=== PATIENT | female | born 1995 | race Caucasian/White ===

== ENCOUNTER 2018-02-06 20:00 | Emergency (ER) | payer OTHER ==
[~2018-02-06] VITALS: Ht 152.4 cm; Wt 60.8 kg
[~2018-02-06 20:00] MED LIST: ALEVE220 M1 PO; ANTIVERT25 MG PO; CITALOPRAM HYDR20 MG PO; ESCITALOPRAM OX10 MG PO; FIORICET 50-301 EACH PO; LINZESS72 MCG PO; MECLIZINE HCL25 MG PO; MOTRIN800 MG PO; PANTOPRAZOLE SO40 M1 PO; PANTOPRAZOLE SO40 MG PO; PROMETHAZINE12.5 M2 PO; SERTRALINE HCL50 MG PO; TRAZODONE HCL50 M1; VITAMIN D250000 UNIT PO
[2018-02-06 20:25] VITALS: BP 117/69
--- NOTE | 2018-02-06 20:33 | ED AMS/SEIZURE/WEAK/DIZZY ---
History of Present Illness General Chief Complaint: General Adult Stated Complaint: "PAIN AND HEAD PRESSURE , VERTIGO, NAUSEA" Source: patient, old records Exam Limitations: no limitations Vital Signs & Intake/Output Vital Signs & Intake/Output Vital Signs Date Time Temp Pulse Resp B/P B/P Pulse O2 O2 Flow FiO2 Mean Ox Delivery Rate 02/06 2025 99.2 65 18 117/69 98 Room Air Allergies Coded Allergies: Iodinated Contrast- Oral and IV Dye (IODINATED CONTRAST MEDIA - IV DYE) (HIVES 06/12/16) ampicillin (From UNASYN) (HIVES 06/12/16) aripiprazole (From ABILIFY) (TONGUE STIFFNESS AND UNCONTROLABLE MOVEMENTS ) lactase (LACTOSE INTOLERANT 09/08/17) sulbactam (From UNASYN) (HIVES 06/12/16) Reconcile Medications Diazepam (Valium) 2 MG TABLET 1 TAB PO BID dizziness Escitalopram Oxalate 10 MG TABLET 1.5 TAB PO DAILY MENTAL HEALTH (Reported) Linaclotide (Linzess) 72 MCG CAPSULE 1 CAP PO PRN GI (Reported) Linaclotide (Linzess) 72 MCG CAPSULE 1 TAB PO DAILY PRN ABDOMINAL DISCOMFORT Meclizine HCl 25 MG TABLET 1 TAB PO TID PRN VERTIGO (Reported) Naproxen Sodium (Aleve) 220 MG CAPSULE 1-2 CAP PO PRN PAIN (Reported) Pantoprazole Sodium 40 MG TABLET.DR 1 TAB PO DAILY GI (Reported) Promethazine HCl 12.5 MG TABLET 1 TAB PO Q6-8 PRN nausea Promethazine HCl 12.5 MG TABLET 1 TAB PO Q6-8 NAUSEA Triage Note: RECEIVED 22 YO FEMALE WITH HX OF VERTIGO AND MIGRAINES, C/O WORSENING DIZZINES X 3 MONTHS WITH HEAD PRESSURE AND LIGHTHEADEDNESS. PT CURRENTLY SEEING DR DIAZ (ENT) IN [place] FOR VERTIGO AND HAS PATCH BEHIND RIGHT EAR. Triage Nurses Notes Reviewed? yes Onset: Abrupt Duration: week(s):, intermittent, waxing and waning Timing: recent history Injury Environment: home Severity: mild, moderate Severity Numbers: 5 Modifying Factors: Improves With: rest. Worsens With: movement. Associated Symptoms: nausea : No Patient currently breastfeeds: No HPI: 22-year-old female presents with her mother history of vertigo migraines complaining of intermittent for to go episodes and intermittent sporadic diffuse migraine headaches going on for the past 3 months. She has been seen numerous times by her ear nose and throat physician in [place] and is scheduled to have an MRI performed of the inner ear next week. She had an MRI of the head performed here which was unremarkable. She's been taking meclizine without improvement. She currently presents with a scopolamine patch on. She denies any vomiting just reports nausea. No blurry vision tinnitus no recent sinus infections rhinorrhea congestion fever chills. No recent fall or head trauma no numbness no tingling or weakness no slurred speech (Jt Zapata) Past History Travel History Traveled to [place] past 21 day No Medical History Any Pertinent Medical History? see below for history Neurological: migraine, vertigo EENT: NONE Cardiovascular: NONE Respiratory: SEASONAL ASTHMA Gastrointestinal: irritable bowel syndrome, GASTROPARESIS Hepatic: NONE Renal: NONE Musculoskeletal: NONE Psychiatric: NONE Endocrine: NONE Blood Disorders: NONE Cancer(s): NONE OFFICE SERVICES MANAGER/Reproductive: NONE Tetanus Vaccine: 05/27/15 Surgical History Surgical History: appendectomy Psychosocial History What is your primary language Korean Tobacco Use: Never used Family History Hx Contributory? No (Jt Zapata) Review of Systems Review of Systems Constitutional: Reports: see HPI. Comments Review of systems: See HPI, All other systems negative. Constitutional, no chills no fever, HEENT: no sore throat no congestion Cardiovascular: No chest pain Skin: no rashes, no change in skin Respiratory: No dyspnea no cough no sputum GI: No nausea no vomiting, no diarrhea Muscle skeletal: No joint pain, no back pain Neurologic: , no headache Heme/endocrine: No bruising (Jt Zapata) Physical Exam Physical Exam General Appearance: well developed/nourished, no apparent distress, alert, awake Comments: Well-developed well-nourished patient in no apparent distress. Head/Face: Atraumatic, no maxillary/frontal sinus tenderness, no facial swelling Eyes: PERRL, EOMI, no conjunctival injection. No nystagmus Ear:External auditory canal and Tympanic membranes clear, no erythema, no FB. Nose: atraumatic.Normal inspection: No bleeding, Throat: Moist mucous membranes.Pharynx normal. Neck: Supple, no lymphadenopathy, FROM Back: FROM Cardiovascular: Regular rate and rhythms no murmurs Respiratory: No respiratory distress. Patient speaking in full complete sentences. Breath sounds clear to auscultation bilaterally: NO W/R/R Extremities: full range of motion Neuro: awake, alert, and oriented to person, place and time. There were no obvious focal neurologic abnormalities. Skin: Warm & dry;No appreciable rash on exposed skin Psych: Mood affect normal, normal memory normal judgment. Core Measures ACS in differential dx? No CVA/TIA Diagnosis No Sepsis Present: No Sepsis Focused Exam Completed? No (Jt Zapata) Progress Differential Diagnosis: benign positional vertigo, dehydration, electrolyte imbalance, intracranial Hem., intracranial mass/tumor, labrynthitis Plan of Care: I discussed with the patient and her mother plan of care. She is scheduled to have MRI of her inner ear performed next week old records reviewed including the patient's previous MRI of the head was reviewed here. We'll send her home with his professional services consultant for Valium and Phenergan. Return precautions were discussed given symptoms have been unimproved with meclizine and scopolamine patches they've been intermittent for the past 3 months I do not believe she requires a workup at this time as she is already scheduled follow-up with ENT again which she seen numerous times for the same issue.. I had an extensive conversation regarding need for close follow up with their primary care physician this week as well as return precautions. I answered all of their questions, they feel comfortable with the plan and follow-up care. I discussed with the patient/family the medications that they will receive. I gave them signs and symptoms that could indicate an adverse reaction. I have advised them to limit their activities until they can see how they respond to the medication. Initial ED EKG: none (Jt Zapata) Departure Departure Time of Disposition: 2051 Disposition: HOME OR SELF CARE Condition: Stable Clinical Impression Primary Impression: Vertigo Referrals: Shahana DE LA GARZA,Gladys Mcgee (PCP/Family) Additional Instructions: Follow-up with her ear nose and throat physician. Valium as directed no driving while taking this medication use caution as it may make you drowsy. This is for dizziness. Phenergan for nausea. Return to ER anytime sooner if her symptoms worsen or he have any other concerns. Departure Forms: Customer Survey General Discharge Information Prescriptions: Current Visit Scripts Diazepam (Valium) 1 TAB PO BID #8 TAB Promethazine HCl 1 TAB PO Q6-8 PRN nausea #10 TAB (Tai ECHEVARRIA,Jt) PA/WIRE WRAPPING MACHINE OPERATOR Co-Sign Statement Statement: ED Attending supervision documentation- [] I saw and evaluated the patient. I have also reviewed all the pertinent lab results and diagnostic results. I agree with the findings and the plan of care as documented in the PA's/WIRE WRAPPING MACHINE OPERATOR's documentation. [X] I have reviewed the ED Record and agree with the PA's/WIRE WRAPPING MACHINE OPERATOR's documentation. [] Additions or exceptions (if any) to the PAs/WIRE WRAPPING MACHINE OPERATOR's note and plan are summarized below: [] (Sully DE LA GARZA,Jordan Turk)
[2018-02-06] MEDS ORDERED: PROMETHAZINE12.5 M2 PO (20:54)
[2018-02-06] MEDS ORDERED: VALIUM2 M1 PO (20:54)
== END 2018-02-06 21:00 ==
LOC: ERH 20:00
DX: R42 Dizziness and giddiness (principal)